=== PATIENT | female | born 1955 | race Caucasian/White ===

== ENCOUNTER 2018-12-26 08:39 | Emergency (ER) | payer OTHER ==
[~2018-12-26] VITALS: Ht 162.6 cm; Wt 73.9 kg
[2018-12-26 08:46] VITALS: Ht 162.6 cm; Wt 73.9 kg
[2018-12-26 09:34] LABS: BASOPHIL % 0.4 % (0-2); PLATELET COUNT 260 x10^3mcL (130-400); RED CELL DISTRIBUTION WIDTH 14.1 % (11.5-14.5)
[2018-12-26 09:45] LABS: CARBON DIOXIDE 31.3 mmol/L (21-32); CHLORIDE SERUM 103 mmol/L (98-107); CREATININE SERUM 0.8 mg/dL (0.6-1.0); GFR1 > 60 mL/min; GLUCOSE SERUM 100 mg/dL (74-106); POTASSIUM SERUM 3.8 mmol/L (3.5-5.1); SODIUM SERUM 142 mmol/L (136-145)
[2018-12-26 09:49] LABS: ALBUMIN 3.8 g/dL (3.4-5.0); ALKALINE PHOSPHATASE 106 U/L (46-116); ALT/SGPT 34 U/L (14-59); AST/SGOT 26 U/L (15-37); BILIRUBIN TOTAL 0.51 mg/dL (0.20-1.00); LIPASE 119 IU/L (73-393); TOTAL PROTEIN, SERUM 7.9 g/dL (6.4-8.2)
[2018-12-26 10:50] LABS: microscopic required? YES; urine erythrocyte TRACE (NEGATIVE)
[2018-12-26 12:52] VITALS: BP 123/67
== END 2018-12-26 13:08 | disposition home or self-care (01) ==
LOC: ED 08:39
PROVIDERS: Emergency Medicine
DX: K80.20 Calculus of gallbladder without cholecystitis without obstruction (principal)
CPT/HCPCS: J1200; J1885; J7030; Q0092

== ENCOUNTER 2019-09-28 23:05 | Emergency (ER) | payer OTHER ==
[~2019-09-28] VITALS: Ht 167.6 cm; Wt 77.1 kg
[2019-09-28 23:14] VITALS: Ht 167.6 cm; Wt 77.1 kg
[2019-09-29 00:44] LABS: CALCIUM 9.5 mg/dL (8.5-10.1); CARBON DIOXIDE 30.5 mmol/L (21-32); CHLORIDE SERUM 104 mmol/L (98-107); CREATININE SERUM 0.9 mg/dL (0.6-1.0); GFR1 > 60 mL/min; GLUCOSE SERUM 113 mg/dL (74-106); POTASSIUM SERUM 4.1 mmol/L (3.5-5.1); SODIUM SERUM 140 mmol/L (136-145)
[2019-09-29 00:49] LABS: ALBUMIN 3.6 g/dL (3.4-5.0); ALKALINE PHOSPHATASE 106 U/L (46-116); ALT/SGPT 28 U/L (14-59); AST/SGOT 18 U/L (15-37); BILIRUBIN TOTAL 0.21 mg/dL (0.20-1.00); LIPASE 186 IU/L (73-393)
[2019-09-29 00:50] LABS: BASOPHIL % 0.3 % (0-2); PLATELET COUNT 217 x10^3mcL (130-400); RED CELL DISTRIBUTION WIDTH 14.2 % (11.5-14.5)
[2019-09-29 02:16] LABS: UA SPECIFIC GRAVITY 1.015 (1.005-1.035); microscopic required? YES; urine erythrocyte NEGATIVE (NEGATIVE)
[2019-09-29 02:50] VITALS: BP 116/57
== END 2019-09-29 02:50 | disposition home or self-care (01) ==
LOC: ED 23:05
PROVIDERS: Student in an Organized Health Care Education/Training Program
DX: M62.830 Muscle spasm of back (principal); K80.50 Calculus of bile duct without cholangitis or cholecystitis without obstruction; E11.9 Type 2 diabetes mellitus without complications
CPT/HCPCS: J2405; J7030; Q0092